=== PATIENT | female | born 1965 | race African-American/Black ===

== ENCOUNTER 2016-09-07 06:06 | Day surgery (SDC) | payer BC, OTHER ==
--- NOTE | ~2016-09-07 | EGD ---
EGD REPORT [facility] [address] [id number] NAME: JANELL STANFORD : [birth year] STATUS : REG [facility]#: [id number] AGE: 50 ADM/REG DATE : 09/07/16 MR#: [id number] REPORT SERV DATE: 09/07/16 DICTATED BY: CAM JUNIOR DATE: 09/07/16 REPORT STATUS : Draft [facility] DATE: 09/07/16 End[facility] Center Patient Name: Janell Stanford Date of : 1965 Attending MD: CAM JUNIOR MD Procedure Date No Time: 09/07/2016 Procedure: Colonoscopy Indications: Abdominal pain in the left lower quadrant, Diarrhea, Last colonoscopy: December 2013 Referring MD: GERARDO CHARLES MD, CHRISTINE JUAREZ Medicines: See the Anesthesia note for documentation of the administered medications Complications: No immediate complications. Procedure: Pre-Anesthesia Assessment: - ASA Grade Assessment: III - A patient with severe systemic disease. After I obtained informed consent, the scope was passed under direct vision. Throughout the procedure, the patient's blood pressure, pulse, and oxygen saturations were monitored continuously. The PCF [id number] was introduced through the anus and advanced to the terminal ileum, with identification of the appendiceal orifice and IC valve. The colonoscopy was performed without difficulty. The patient tolerated the procedure well. The quality of the bowel preparation was adequate. Findings: The perianal and digital rectal examinations were normal. The terminal ileum appeared normal. Internal hemorrhoids were found during retroflexion. The ascending colon appeared normal. Biopsies were taken with a cold forceps for histology. The rectum appeared normal. Biopsies were taken with a cold forceps for histology. Impression: - The examined portion of the ileum was normal. - Internal hemorrhoids. - The ascending colon is normal. Biopsied. - The rectum is normal. Biopsied. Recommendation: - Patient has a contact number available for emergencies. The signs and symptoms of potential delayed complications were discussed with the patient. Return to normal activities tomorrow. Written discharge instructions were provided to the patient. EGD REPORT [address] [address] NAME: JANELL STANFORD : [birth year] STATUS : REG [facility] [place] PAT#: [id number] AGE: 50 ADM/REG DATE : 09/07/16 MR#: [id number] REPORT SERV DATE: 09/07/16 DICTATED BY: CAM JUNIOR DATE: 09/07/16 REPORT STATUS : Draft TRANSCRIBED BY: [employer] DATE: 09/07/16 - Regular diet. - Continue present medications. - Repeat colonoscopy in 5 years for screening purposes. - Follow up with Dr Junior or his nurse practitioner in 6 weeks - FOR YOUR BIOPSY RESULTS: Please go to [email or web address] and register to receive your results via the portal. Your biopsy results will be posted there in about 7 to 10 days. IF you do not see result in 10 days, call office. Procedure Code(s): --- Professional --- 91640, Colonoscopy, flexible, proximal to splenic flexure; with biopsy, single or multiple Diagnosis Code(s): --- Professional --- K64.8, Other hemorrhoids R10.32, Left lower quadrant pain R19.7, Diarrhea, unspecified CPT copyright 2013 [employer]. All rights reserved. The codes documented in this report are preliminary and upon mosaic layer review may be revised to meet current compliance requirements. Cam Junior MD CAM JUNIOR MD 09/07/2016 7:59 AM This report has been signed electronically. Number of Addenda: 0 Note Initiated On: 09/07/2016 7:37 AM Scope Withdrawal Time 0 hours 9 minutes 35 seconds [address] [id number]
[~2016-09-07 06:06] MED LIST: ACCUNEB INH; AMIT50 PO; ARAVA 20 MG TAB20 MG OR; ARAVA20 PO; ASAB PO; ATV1 PO; BEN25 PO; BUM1 PO; BUPROPION OR; CALTRAT600 PO; CARD60 PO; COREG12 PO; COREG25 PO; COREG6 PO; CYMBALTA PO; CYMBALTA20 PO; DEMA10T PO; DIL4TAB PO; DULERA 200 MCG/13 GM INH; FLEXERIL5 MG PO; FLONASE NAS; GOODYS PM1 POW OR; K-TABS10 MEQ PO; KDUR20 PO; KLONO1 PO; KLONO5 PO; KLOR-CON M2020 MEQ PO; LEVAQUIN750 MG PO; MAXIMUM D3 PO; MIRALAXPKT PO; MUCINEX DM1 TAB PO; MULTIVIT/MIN PO; NAP500 PO; NEUR300 PO; NEXIUM40 PO; OMNICEF300 PO; OS500+D PO; P10 PO; P5 PO; PAIN RELIE PO; PCET PO; PLAQ200B PO; PR25 PO; PREV15 PO; PREV30 PO; PRIN5 PO; PROAIR HFA INH; PROTONIX PO; PROVENTSOL INH; RITUXAN INF; RITUXAN IV; SALONPAS-HOT TOP; SPIRO25 PO; SYMBICORT 160/41 INH INH; SYMBICORT PO; TYLENOL ARTH650 MG PO; V5 PO; VENTOLIN HFA INH; VIACTIV PO; WELLXL150 PO; ZESTRIL20 MG PO; ZOFRAN4 PO; ZYRTEC ALLGY10 MG PO
[2017-02-27] MEDS ORDERED: COREG12 PO (13:22)
[2017-02-27] MEDS ORDERED: SPIRO25 PO (13:22)
[2017-02-27] MEDS ORDERED: BENTYL10 PO (13:23)
== END 2016-09-07 23:59 | disposition home or self-care (01) ==
LOC: DMU 06:06
PROVIDERS: Internal Medicine Gastroenterology
PROC: 0DBP8ZX Excision of Rectum, Via Natural or Artificial Opening Endoscopic, Diagnostic (ICD-10-PCS; 2016-09-07)
PROC: 0DBK8ZX Excision of Ascending Colon, Via Natural or Artificial Opening Endoscopic, Diagnostic (ICD-10-PCS; principal; 2016-09-07 08:00)
DX: K64.8 Other hemorrhoids (principal); R10.32 Left lower quadrant pain; R19.7 Diarrhea, unspecified; J84.9 Interstitial pulmonary disease, unspecified; Z88.5 Allergy status to narcotic agent; Z88.8 Allergy status to other drugs, medicaments and biological substances; E66.01 Morbid (severe) obesity due to excess calories; Z79.899 Other long term (current) drug therapy; Z91.010 Allergy to peanuts
CPT/HCPCS: 88305